=== PATIENT | female | born 1945 | race Caucasian/White ===

== ENCOUNTER → 2024-11-03 08:16 | Outpatient (REF) | payer MEDICARE, BC, SELFPAY | LOC: RAD 08:16 | PROVIDERS: ATTENDING PHYSICIAN Internal Medicine; FAMILY PHYSICIAN Student in an Organized Health Care Education/Training Program | DX: I77.3 Arterial fibromuscular dysplasia (principal) | CPT/HCPCS: 93975 ==

== ENCOUNTER 2025-01-16 14:39 | Inpatient (IN) | payer MEDICARE, BC, SELFPAY ==
[2025-01-16] VITALS (28 sets, daily range): BP systolic 83–143; BP diastolic 48–76; BMI 29.3
[2025-01-16] MEDS: NSS 1000 IV (11:32)
[2025-01-16] MEDS: OFIRMEV 1000 MG IV (11:34)
[2025-01-16 11:41] LABS: AST (SGOT) 117 U/L (14-36); Albumin 3.2 g/dl (3.5-5.0); Alkaline Phosphatase 253 U/L (38-126); Blood Urea Nitrogen 19 mg/dl (7-17); Calcium 8.9 mg/dl (8.4-10.2); Carbon Dioxide 16 mmol/L (22-30); Chloride 99 mmol/L (98-107); Glucose 184 mg/dl (70-99); Potassium 3.9 mmol/L (3.5-5.1); Sodium 132 mmol/L (135-145); Total Bilirubin 1.7 mg/dl (0.2-1.3); Total Protein 6.9 g/dl (6.3-8.2); eGFR 57.31
[2025-01-16 11:42] LABS: Lactic Acid 6.6 mmol/L (0.7-2.0)
[2025-01-16 11:53] LABS: COVID-19 Antigen Negative (Negative)
[2025-01-16 11:54] LABS: Urine Albumin 3+ (Neg - Trace); Urine Bilirubin Negative (Negative); Urine Character Cloudy (Clear); Urine Color Amber; Urine Glucose Negative (Negative); Urine Ketone 3+ (Negative); Urine Leukocyte 3+ (Negative); Urine Nitrite Positive (Negative); Urine Occult Blood 4+ (Negative); Urine Urobilinogen 2+ (Neg - 1+)
[2025-01-16] MEDS: MAXIPIME 2000 MG IV ×2 (11:54→23:11)
[2025-01-16] MEDS: LR 1250 IV (11:54)
[2025-01-16 12:19] LABS: ALT (SGPT) 70 U/L (0-35)
[2025-01-16 12:20] LABS: % Basophils 0.4 % (0-2); % Immature Granulocytes 3.5 % (0-0.5); % Lymphocytes 3.1 % (20.5-51.1); % Monocytes 5.2 % (1.7-9.3); % Neutrophils 87.8 % (42.2-75.2); Absolute Basophils 0.1 10^3/uL (0-0.2); Absolute Immature Granulocytes 1.3 10^3/uL (0-0.05); Absolute Lymphocytes 1.2 10^3/uL (1.2-3.4); Absolute Neutrophils 33.6 10^3/uL (1.4-6.5); Hematocrit 34.3 % (37.0-47.0); Mean Corpuscular Hgb 32.9 pg (27.0-31.0); Mean Platelet Volume 12.1 fL (7.4-10.4); Nucleated Red Blood Cells % 0 %; Platelet Count 203 10^3/uL (130-400); Red Blood Cell Count 3.65 10^6/uL (4.20-5.40); Red Cell Dist. Width 13.4 % (11.5-14.5); White Blood Cell Count 38.2 10^3/uL (4.8-10.8)
[2025-01-16 12:29] LABS: Urine Bacteria Many (Negative); Urine Red Blood Cell 16-20 /HPF (0-2); Urine White Cell >100 /HPF (0-5)
--- NOTE | 2025-01-16 13:09 | ED.GENMED ---
History of Present Illness
General
Chief Complaint: Change in Mental Status
Time Seen by Provider: 01/16/25 11:30
History of Present Illness
History of Present Illness:
79-year-old female presents to the emergency department from [facility] due to mental status change. She does have baseline cognitive impairment. Reportedly was started on Macrobid for a presumed UTI 2 days ago however with
florid mental status change today. She cannot provide any history and is essentially nonverbal
Review of Systems
Review of Systems
Allergies reviewed?: Yes
All Other Systems: ROS reviewed and negative except as documented in HPI and ROS
Phy Exam
Physical Exam
Physical Exam:
GEN: Toxic appearing, somnolent, arouses to voice but essentially nonverbal
HEENT: Oral mucosa dry, no scleral icterus
Cardiac: Tachycardic, regular
Lung: No respiratory distress, no tachypnea, lungs clear to auscultation bilaterally
Abdomen: Grimaces to palpation of the lower abdomen, no rigidity
MSK: No gross deformity or injuries
Skin: Good color, no pallor or jaundice, no rashes
Neuro: Somnolent, arouses to voice, withdraws to all 4 extremities
Psych: Calm, cooperative
Sepsis
Sepsis Screening
Sepsis Assessment: Septic Shock
Sepsis Screening: Lactate >/=4mmol/L
Sepsis Screen
Sepsis Screen: Septic Shock
Date: 01/16/25
Time: 15:37
Course
Orders/Labs/Results
Orders:
Orders
01/16/25 Lunch
NPO
Allow oral meds: No
Allow clear liquids: No
01/16/25 11:14
DIETARY CONSULT Routine
Reason for Consult: confusion
01/16/25 11:15
Electrocardiogram (*1) Urgent
Reason for Study: Tachycardia
01/16/25 11:18
EKG- Treatment ONCE
01/16/25 11:19
Complete Blood Count/With Diff Urgent
Comprehensive Metabolic Panel Urgent
Lactic Acid Urgent
Urinalysis Reflex To Culture Urgent
Date Specimen was Collected: 01/16/25
Time Specimen was Collected: 11:17
Urine Microscopic Reflex Cult Urgent
Blood Culture Urgent
FABIAN Source: Blood/Venous
Specimen Description:
Date Specimen was Collected: 01/16/25
Time Specimen was Collected: 11:17
Urine Culture Urgent
FABIAN Source: U
Specimen Description:
Date Specimen was Collected: 01/16/25
Time Specimen was Collected: 11:17
01/16/25 11:26
COVID-19 Antigen Urgent
Source: Nasal Swab
Blood Culture Urgent
FABIAN Source: Blood/Venous
Specimen Description:
Influenza A+B Rapid Molecular Urgent
FABIAN Source: Nasal Swab
Specimen Description:
01/16/25 11:31
0.9% Sodium Chloride 1000 ml [Nss] 1,000 ml IV BOLUS
01/16/25 11:33
Acetaminophen 1000MG/100Ml [Ofirmev] 1,000 mg in 100 ml .ROUTE .STK-MED
01/16/25 11:34
Acetaminophen 1000MG/100Ml [Ofirmev] 1,000 mg IV NOW STA
01/16/25 11:43
Lactated Ringers [Lr] 1,250 ml IV BOLUS
01/16/25 11:44
CT Abd/pel Without Iv Or Oral Urgent
Comment:
Reason For Exam: urosepsis
Cefepime HCl [Maxipime] 2,000 mg IV NOW STA
01/16/25 14:22
Admit/Transfer Patient As Directed
Co-Sign Provider:
Level of Care: Inpatient admission
Assign to:: IMU- Intermediate Care
Physician / Group: [email or web address]
Diagnosis: severe sepsis, UTI, TME, abn LFTs , hypotension
Reason for Hospitalization: severe sepsis, UTI, TME, abn LFTs , hypotension
Expected length of stay greater than two midnights?: Yes
ELOS- Estimated Length of Stay in days: 3
I certify the patient meets the requirements for IP care: Yes
01/16/25 14:24
Code Status As Directed
Resuscitation Status: Limited DNR
Limited DNR: -No intubation
01/16/25 15:34
Lactated Ringers [Lr] 1,000 ml IV 120 mls/hr
Abnormal Lab Results
01/16/25
11:19
WBC 38.2 H 10^3/uL
(4.8-10.8)
RBC 3.65 L 10^6/uL
(4.20-5.40)
Hct 34.3 L %
(37.0-47.0)
MCH 32.9 H pg
(27.0-31.0)
MPV 12.1 H fL
(7.4-10.4)
Abs Immat Gran (auto) 1.3 H 10^3/uL
(0-0.05)
Absolute Neuts (auto) 33.6 H 10^3/uL
(1.4-6.5)
Absolute Monos (auto) 2.0 H 10^3/uL
(0.1-0.6)
Immature Gran % 3.5 H %
(0-0.5)
Neutrophils % 87.8 H %
(42.2-75.2)
Lymphocytes % 3.1 L %
(20.5-51.1)
Sodium 132 L mmol/L
(135-145)
Carbon Dioxide 16 L mmol/L
(22-30)
BUN 19 H mg/dl
(7-17)
Glucose 184 H mg/dl
(70-99)
Lactic Acid 6.6 H* mmol/L
(0.7-2.0)
Total Bilirubin 1.7 H mg/dl
(0.2-1.3)
AST 117 H U/L
(14-36)
ALT 70 H U/L
(0-35)
Alkaline Phosphatase 253 H U/L
(38-126)
Albumin 3.2 L g/dl
(3.5-5.0)
Urine Ketones 3+ A
(Negative)
Ur Occult Blood Reflex 4+ A
(Negative)
Urine Nitrite (Reflex) Positive A
(Negative)
Urine Urobilinogen 2+ A
(Neg - 1+)
Leukocyte Esterase Rfl 3+ A
(Negative)
Urine RBC 16-20 A /HPF
(0-2)
Urine WBC (Reflex) >100 A /HPF
(0-5)
Urine Bacteria (Reflex) Many A
(Negative)
Urine Albumin (Reflex) 3+ A
(Neg - Trace)
01/16/25 11:19
01/16/25 11:19
Vital Signs
Initial and Last Documented VS:
Initial Vital Signs
Temp Pulse Resp BP
102.6 F H 106 30 133/70
01/16/25 11:11 01/16/25 11:11 01/16/25 11:11 01/16/25 11:11
Last Documented Vital Signs
Temp Pulse Resp BP Pulse Ox
102.6 F H 91 26 96/54 93
01/16/25 11:11 01/16/25 15:00 01/16/25 15:00 01/16/25 15:00 01/16/25 13:30
MDM/Problems Addressed
MDM/Problems Addressed:
Patient severely septic at this time with markedly elevated white count and lactic acid, MAP remained stable after being administered high-volume fluid resuscitation. No indication for vasopressors at this time. Will admit to the hospitalist
service, broad-spectrum IV antibiotics initiated
*Critical Care Note
Total Time (30-74mins, 75-104mins- exclusive of procedures): 40 minutes
comment:
Critical care time: 40 minutes
Critical care time was exclusive of: Separately billable procedures, treating other patients, and teaching time
Critical care was necessary to treat or prevent imminent or life-threatening deterioration of the following conditions: Urosepsis/septic shock
Critical care time spent personally by me on the following activities:
[x] Review of old charts
[x] Obtaining history from patient or surrogate
[x] Ordering and review of the laboratory studies
[x] Ordering and review of radiographic studies
[x] Ordering and performing treatments and interventions
[x] Patient patient's response to treatment
[x] Development of treatment plan with patient or surrogate
ED Attending Note
-
Portions of this chart may have been created with voice recognition software.� Occasional wrong word or��sound alike� substitutions may have occurred due to the inherent limitations of voice recognition software.
Discharge Plan
Departure
Patient Disposition: Admit
Date of Disposition: 01/16/25
Time of Disposition: 13:14
Admit to: IMU
Presentation/result/management discussed w/ accepting MD/DO: Hospitalist
Discharge Problem:
Septic shock, Urinary tract infection
Interventions
Interventions:
*Risk Screen - Suicide Last Done: 01/16/25 11:09
*General Assessment Last Done: 01/16/25 11:09
*Neglect/Abuse Screening Last Done: 01/16/25 11:09
ED- Fall Risk Assessment Last Done: 01/16/25 11:10
*ED COVID-19 Vaccine History Last Done: 01/16/25 11:09
ED- Neurological Assessment Last Done: 01/16/25 11:13
ED Swallowing Screen Last Done: 01/16/25 11:13
--- NOTE | 2025-01-16 14:15 | HPS.HSE ---
Family Physician
-
Family Physician: Vance Davis, DO
Chief Complaint
-
AMS, UTI
History of Present Illness
I could not get any information from the patient TME and cogntive disorder
Information gathered by chart review and speaking with the ER staff.
79F Res of [facility], HX Cognitive impairement ( MCI vs Dementia) seen at ER;
- pw mental status change.
- Dxed presumed UTI 2 days ago and was started on Macrobid f
- florid mental status change today.
- She cannot provide any history and is essentially nonverbal
Medical History
Past Medical History
Past Medical History: Reports HTN, Hypercholesterolemia and IDDM
Past Surgical History: Reports Other
Social History
Unable to obtain full social history at this time due to: Acuity
Family History
Family History: Not pertinent
Allergies / Home Medications
Allergies reflects when Allergies were last updated in [facility].
Home Medications with original date entered in [facility]
Allergy/Medication List:
Allergies
Allergy/AdvReac Type Severity Reaction Status Date / Time
No Known Allergies Allergy Unverified 01/16/25 11:02
Home Medications
Lactobac no.2-Bifidobac no.1-S. thermo 112.5 billion cell capsule (Visbiome) 1 cap PO DAILY 01/16/25
acetaminophen 325 mg tablet 650 mg PO Q6HPRN PRN mild pain/temp>100 01/16/25
acetaminophen 500 mg tablet (Tylenol Extra Strength) 1,000 mg PO DAILY 01/16/25
atorvastatin 10 mg tablet 10 mg PO HS 01/16/25
bisacodyl 10 mg rectal suppository (Dulcolax (bisacodyl)) 10 mg GA DAILYPRN PRN if mom ineffective 01/16/25
budesonide 0.5 mg/2 mL suspension for nebulization 0.5 mg inhalation R BID 01/16/25
clopidogrel 75 mg tablet 75 mg PO DAILY 01/16/25
cranberry extract 200 mg capsule (Ellura) 200 mg PO DAILY 01/16/25
cranberry fruit 450 mg tablet (cranberry) 450 mg PO DAILY 01/16/25
divalproex 125 mg tablet,delayed release (Depakote) 125 mg PO TID 01/16/25
estradiol 0.01% (0.1 mg/gram) vaginal cream (Estrace) 1 g vaginal DAILY 01/16/25
estradiol 0.01% (0.1 mg/gram) vaginal cream (Estrace) 1 g vaginal MOTH 01/16/25
insulin glargine 100 unit/mL (3 mL) subcutaneous pen 35 unit SC HS 01/16/25
insulin lispro 100 unit/mL subcutaneous pen (Humalog KwikPen (U-100) Insulin) 1 sliding scale dose SC ACHS 01/16/25
insulin lispro 100 unit/mL subcutaneous pen (Humalog KwikPen (U-100) Insulin) 15 unit SC NOON 01/16/25
magnesium hydroxide 400 mg/5 mL oral suspension (Milk of Magnesia) 30 ml PO [id number] PRN no bm x3 days 01/16/25
metoprolol succinate 25 mg tablet,extended release 24 hr 12.5 mg PO DAILY 01/16/25
nitrofurantoin monohydrate/macrocrystals 100 mg capsule (Macrobid) 100 mg PO BID 01/16/25
nystatin 100,000 unit/gram topical powder 1 applic topical BID 01/16/25
pantoprazole 40 mg tablet,delayed release 40 mg PO DAILY 01/16/25
paroxetine HCl 20 mg tablet 20 mg PO HS 01/16/25
prednisone 5 mg tablet 5 mg PO DAILY 01/16/25
quetiapine 25 mg tablet (Seroquel) 12.5 mg PO HS 01/16/25
sodium phosphates 19 gram-7 gram/118 mL enema (Fleet Enema) 118 ml GA DAILYPRN PRN if dulcolax ineffective 01/16/25
therapeutic multivitamin 1 tab PO DAILY 01/16/25
tramadol 50 mg tablet 50 mg PO BIDPRN PRN moderate pain 01/16/25
tramadol 50 mg tablet 50 mg PO DAILY 01/16/25
vibegron 75 mg tablet (Gemtesa) 75 mg PO HS 01/16/25
wound dressings (Triad Wound Dressing paste) 1 applic topical DAILY 01/16/25
Review of Systems
-
Unable to obtain full review of systems at this time due to: Acuity
Physical Exam
Vital Signs
Vital Signs
Temp Pulse Resp BP Pulse Ox
102.6 F H 94 32 103/54 95
01/16/25 11:11 01/16/25 13:15 01/16/25 13:15 01/16/25 13:15 01/16/25 13:00
Physical Exam
General: Other (Toxic appearing, somnolent, arouses to voice but essentially nonverbal)
HEENT: No Moist mucous membranes (dry OM )
Respiratory: Clear; No Rales
Cardiac: S1/S2, Regular Rhythm and Tachycardia
GI: Soft and Other (Grimaces to palpation of the lower abdomen, no rigidity)
Skin: No Rash or Jaundice
Neuro: Other ( somnolent, arouses to voice but essentially nonverbal)
Psych: Other ( somnolent, arouses to voice but essentially nonverbal)
Laboratory Results
-
01/16/25 11:19
01/16/25 11:19
Laboratory Results
Lactic Acid 6.6 mmol/L (0.7-2.0) H* 01/16/25 11:19
Total Bilirubin 1.7 mg/dl (0.2-1.3) H 01/16/25 11:19
AST 117 U/L (14-36) H 01/16/25 11:19
ALT 70 U/L (0-35) H 01/16/25 11:19
Alkaline Phosphatase 253 U/L (38-126) H 02/16/25 11:19
Data Reviewed
-
CT Scan: Report Reviewed by me
Medical Tests (Nuc Med, Echo, EKG etc): Report Reviewed by me
Lab Data: Labs Reviewed by me
Impression/Plan
-
Reviewed VS:
Vital Signs
Temp Pulse Resp BP Pulse Ox
102.6 F H 94 32 103/54 95
01/16/25 11:11 01/16/25 13:15 01/16/25 13:15 01/16/25 13:15 01/16/25 13:00
01/16/25
11:11 01/16/25
13:15 01/16/25
13:15
Temp 102.6 F H
Pulse 94
Blood pressure 103/54
Laboratory Tests
01/16/25 01/16/25
11:19 11:26
WBC 38.2 H
Sodium 132 L
Carbon Dioxide 16 L
BUN 19 H
Creatinine 1.0
eGFR 57.31
Lactic Acid 6.6 H*
Total Bilirubin 1.7 H
AST 117 H
ALT 70 H
Alkaline Phosphatase 253 H
Urine Nitrite (Reflex) Positive A
Leukocyte Esterase Rfl 3+ A
Urine RBC 16-20 A
Urine WBC (Reflex) >100 A
Urine Bacteria (Reflex) Many A
SARS-CoV-[address] Abd/pel Without Iv Or Oral
- moderate distention of both ureters along their entire course to the level of the ureterovesical junction with associated mild fullness of the renal pelvis, though without apparent caliectasis.
- No obstructing calculus identified.
- There is, however, prominent bladder wall thickening with associated perivesical soft tissue stranding, highly suspicious for advanced cystitis. Wall thickening may be contributing to functional obstruction related to the interstitial component of
the ureters. - Nonspecific perinephric soft tissue stranding, left greater than right. Possibly chronic.
Such findings may also be associated with pyelonephritis.
- Right renal cysts.
- Splenomegaly.
- Minor diverticulosis.
- No evidence of acute diverticulitis.
ASSESSMENT & PLAN
Severe sepses due to UTI
CT suggestive of highly suspicious for advanced cystitis
Asso. TME
Asso. abn LFTs due to sepsis
Of note: INSIDE PLANT SUPERVISOR chr prednisone noted of uncertain indication
- Agree with septic LR IV fluid bolus and maintainable
- Agree with IV CFP
- f/u UCx and BCx
- Trend LA and VSS
- any clinical deterioration , will start stress dose IV hydrocortisone due to INSIDE PLANT SUPERVISOR chr prednisone
- Hold metoprolol for now di=ue to borderline hypotension
- Trend LFTS
Associated TME due to UTI and severe sepsis
- NPO for aspiration precaution
- IVF
IrDM
- cont. 50 percent of INSIDE PLANT SUPERVISOR Lantus due to NPO
- add ISS low
- Hold Humalog
- NPO for aspiration prcuation
DVT Px: SQH
Code: DNI per ER CUSHION INSTALLER
IMU
[2025-01-16] MEDS: LR 1000 IV ×2 (15:46→23:33)
[2025-01-16 17:32] LABS: Glucose - Point of Care 148 mg/dl (70-99)
--- NOTE | 2025-01-16 17:43 | PTCARENOTE ---
Received patient into room 3354 from the ED. Patient has eyes open but does not attempt to communicate. Pt looks when name is called but does not follow directions. Pt appears drowsy, falls asleep when not engaged. Pt in SR on monitor. Lungs coarse.
She has a few wounds including a stage 3 to sacrum and a large skin tear to her left schreiber, WOC consulted. IVF maintained. 99.7 ax temperature. Assessment, care and VS as charted.
[2025-01-16 18:21] LABS: Lactic Acid 2.9 mmol/L (0.7-2.0)
--- NOTE | 2025-01-16 19:00 | PTCARENOTE ---
Received pt from day shift. Pt drowsy, nonverbal but pt responds to her name. Sinus tach on monitor. 96% on RA, coarse throughout. PW in place draining daniel urine.
[2025-01-16 21:55] LABS: Lactic Acid 4.5 mmol/L (0.7-2.0)
--- NOTE | 2025-01-16 23:00 | PTCARENOTE ---
Pt's lactic 4.5. Pt's rectal temp 105.1. Notified TRUDY Cote. Rx received for cooling blanket and IV Tylenol (see MAR).
[2025-01-16 23:10] LABS: Glucose - Point of Care 178 mg/dl (70-99)
[2025-01-16] MEDS: LANTUS 0.18 UNITS SC (23:10)
[2025-01-16] MEDS: HEPARIN 5000 UNITS SC (23:10)
[2025-01-16] MEDS: STERILE WATER FOR INJECTION 10 ML IV (23:16)
[2025-01-16] MEDS: OFIRMEV 100 IV (23:33)
[2025-01-17] VITALS (12 sets, daily range): BP systolic 66–147; BP diastolic 40–133; BMI 29.8
[2025-01-17 02:27] LABS: Lactic Acid 5.1 mmol/L (0.7-2.0)
--- NOTE | 2025-01-17 02:45 | PTCARENOTE ---
Lactic increased to 5.1 Kera TRAINING PROJECT MANAGER notified.
[2025-01-17 03:34] LABS: Glucose - Point of Care 183 mg/dl (70-99)
[2025-01-17 05:59] LABS: Lactic Acid 7.2 mmol/L (0.7-2.0)
[2025-01-17 06:19] LABS: Blood Urea Nitrogen 21 mg/dl (7-17); Calcium 9.1 mg/dl (8.4-10.2); Chloride 106 mmol/L (98-107); Estimated Creatinine Clearance 64 ml/min; Glucose 132 mg/dl (70-99); Potassium 4.2 mmol/L (3.5-5.1); Sodium 135 mmol/L (135-145); eGFR > 60.00
[2025-01-17 06:25] LABS: Hematocrit 32.5 % (37.0-47.0); Hemoglobin 11.5 g/dL (12.0-16.0); Mean Corp Hgb Conc. 35.4 g/dL (33.0-37.0); Mean Corpuscular Hgb 33.4 pg (27.0-31.0); Mean Corpuscular Volume 94.5 fL (81.0-99.0); Mean Platelet Volume 12.4 fL (7.4-10.4); Platelet Count 142 10^3/uL (130-400); Red Blood Cell Count 3.44 10^6/uL (4.20-5.40); Red Cell Dist. Width 13.4 % (11.5-14.5); White Blood Cell Count 25.8 10^3/uL (4.8-10.8)
[2025-01-17 06:31] LABS: Carbon Dioxide 8 mmol/L (22-30)
--- NOTE | 2025-01-17 06:45 | PTCARENOTE ---
Lactic increased to 7.2. CO2 is 8. TRUDY Cote notified. Rx received for IVF w/ sodium bicarb.
--- NOTE | 2025-01-17 06:48 | W.PN.UPDATE ---
Update Note
Progress Note Update
ID consult placed due to lactic acidosis likely urine source. T 105F anion gap 20, bp is stable. Meropenem added, cefepime stopped (2 doses total). IVF changed to 1/2 ns with HCO3 . [facility] may be resistant organism involved UA
C+S pending.
[2025-01-17 07:12] LABS: Glucose - Point of Care 153 mg/dl (70-99)
[2025-01-17] MEDS: SODIUM BICARBONATE 1075 MEQ IV (07:20)
[2025-01-17] MEDS: MERREM 1000 MG IV (07:32)
[2025-01-17] MEDS: STERILE WATER FOR INJECTION 20 ML IV (07:32)
[2025-01-17] MEDS: HEPARIN 5000 UNITS SC (07:32)
[2025-01-17] MEDS: NOVOLOG FLEXPEN-LOW RESISTANCE 1 UNITS SC ×2 (07:40→12:19)
--- NOTE | 2025-01-17 07:42 | PTCARENOTE ---
DR Schultz tt pt lactic 7.2, co2 8 and temp 103.5 on cooling blanket. Pt is lethargic, moaning occ. in B/B urine is ytea olor,tachycardic at 124. lungs are coarse
[2025-01-17 08:54] LABS: % Basophils 0.2 % (0-2); % Immature Granulocytes 1.1 % (0-0.5); % Lymphocytes 2.9 % (20.5-51.1); % Monocytes 5.9 % (1.7-9.3); % Neutrophils 89.9 % (42.2-75.2); Absolute Basophils 0.1 10^3/uL (0-0.2); Absolute Immature Granulocytes 0.3 10^3/uL (0-0.05); Absolute Lymphocytes 0.8 10^3/uL (1.2-3.4); Absolute Monocytes 1.5 10^3/uL (0.1-0.6); Absolute Neutrophils 23.2 10^3/uL (1.4-6.5); Nucleated Red Blood Cells % 0.2 %
[2025-01-17 09:05] LABS: Glycohemoglobin (HgbA1c) 6.5 % (4.0-5.6)
--- NOTE | 2025-01-17 09:29 | PHA.VAN.IN ---
Assessment
- Assessment
Renal Function: Appears similar to baseline
Concomitant Antimicrobials: meropenem
AUC Dosing Plan
- Dosing Variables
Dosing Weight (kg): 76
Dosing CrCl (ml/min): 64
Vd coefficient (L/kg): 0.7
- Empiric Dosing
Initial / Loading Dose: 2000mg - administration pending
Maintenance Regimen: Vanc 1500mg Q24H starting 01/18 600
Estimated AUC (mcg*h/mL): 511
Estimated Peak (mcg*h/mL): 37.7
Estimated Trough (mcg/ml): 10.3
Estimated Half Life (H): 12
patient with borderline half-life between Q12 vs Q24H interval - follow renal function trend as may require dose adjustment
- Monitoring
No levels ordered at this time: consider levels in next few days
Pharmacokinetics Vancomycin I
- -
Patient Age: 79
Patient Sex: Female
Vancomycin Day #: 1
Indication: Bacteremia
Requesting Provider: Dr. Schultz
Pertinent Antimicrobial Allergies:
NKDA
Height / Weight:
Height 5 ft 3 in
Actual Weight 76.4 kg
Pertinent Past Medical History: BMI ~30, DM
- Vital Signs / Lab Results
Temp Pulse Resp BP Pulse Ox
103.8 F H 121 37 124/64 96
01/17/25 07:20 01/17/25 06:00 01/17/25 06:00 01/17/25 06:00 01/17/25 06:00
Lab Results - Hematology
01/16/25 01/17/25
11:19 05:28
WBC 38.2 H 25.8 H
Lab Results - Chemistry
01/16/25 01/17/25
11:19 05:28
BUN 19 H 21 H
Creatinine 1.0 0.7
Estimated Creat Clear 64
Albumin 3.2 L Cancelled
01/16/25 01/16/25 01/16/25
11:19 17:56 21:35
Lactic Acid 6.6 H* 2.9 H 4.5 H*
01/17/25 01/17/25
02:02 05:28
Lactic Acid 5.1 H* 7.2 H*
Lab Results - Urine
01/16/25
11:19
Urine Nitrite (Reflex) Positive A
Leukocyte Esterase Rfl 3+ A
Urine WBC (Reflex) >100 A
Ur Squamous Epith Cells 3-5
Urine Bacteria (Reflex) Many A
Microbiology Results
01/16/25 11:19 Blood Culture - Preliminary
Blood/Venous Positive culture in progress
Gram Stain - Preliminary
01/16/25 11:26 Blood Culture - Preliminary
Blood/Venous Positive culture in progress
Gram Stain - Preliminary
01/16/25 11:26 Influenza Types A & B (DOUG) - Final
Nasal Swab Negative for Influenza A & B, NAAT
Negative results must be combined with clinical observations
and patient history.
Nucleic Acid Amplification test (NAAT)performed on the
[employer] platform.
[2025-01-17 09:39] LABS: Urine Albumin 3+ (Neg - Trace); Urine Bilirubin Negative (Negative); Urine Character Slightly Cloudy (Clear); Urine Color Yellow; Urine Glucose 1+ (Negative); Urine Ketone 2+ (Negative); Urine Leukocyte 3+ (Negative); Urine Nitrite Negative (Negative); Urine Occult Blood 4+ (Negative); Urine Urobilinogen Negative (Neg - 1+); Urine pH 6.5 (5.0-9.0)
[2025-01-17] MEDS: SODIUM BICARBONATE 1150 MEQ IV (09:45)
[2025-01-17] MEDS: VANCOCIN 540 MG IV (09:47)
--- NOTE | 2025-01-17 09:53 | CON.ID ---
Consultation
-
Date/Time Consultation Requested: January 17, 2025618
Date/Time Consultation Performed: January 17, 2025 0928
Requesting Provider: Dr. Steffen Schultz
Performing Provider: Dr. Izabella Epps
Reason for Consultation: Fever
Chief Complaint / Past History
Chief Complaint
Change in mental status
History of Present Illness
History obtained from review of medical records since patient unable to provide any history. She is a 79-year-old female from residential facility with history of cognitive impairment, diabetes mellitus, urinary incontinence, who presented to
the [facility] on 01/16 due to acute change and mental status. By report she was started on nitrofurantoin for UTI 2 days prior to admission. In the ER temperature 1002.6 with temperature maximum at 105. White count of 38.2. Lactic acid peaked 7.2.
CAT scan of the abdomen pelvis shows dilated bilateral ureters without stones, bladder wall thickening. Patient received cefepime in the ER. Today blood cultures are positive for GPC's. Antibiotics changed to vancomycin and meropenem.
Past History
Additional Past Medical History:
Cognitive impairment
DM
HTN
HLD
Depression/Anxiety
Urinary incontinence
Allergy History:
No Known Allergies Allergy (Unverified 01/16/25 11:02)
Medications Reviewed: Yes
Current Antibiotics:
Vancomycin d1
Meropenem d1
Social History
Tobacco: Non-Smoker
Alcohol: None
Drug: None
Living: Custodial ([place])
Family History
Family History: Not Pertinent
Review of Systems
Review of Systems
Unable to obtain due to decreased mental status.
Vital Signs
Temp Pulse Resp BP Pulse Ox
103.8 F H 121 37 124/64 96
01/17/25 07:20 01/17/25 06:00 01/17/25 06:00 01/17/25 06:00 01/17/25 06:00
Selected Entries
01/16/25
23:25
Temp 105 F H
Physical Exam
Physical Exam
Constitutional: Acutely Ill
Head: Other (No frontal or maxillary sinus tenderness)
Eyes: No Conjunctival Hemorrhage and Sclera Anicteric
Cardiovascular: S1/S2 and Other (Tachycardic)
Pulmonary: Clear
Gastrointestinal: Soft, Non Tender, Non Distended and Normal Bowel Sounds
Genito-Urinary: Negative CVA Tenderness
Extremities: Negative Edema
Skin: Other
Wound: Other (BLE with excoriations)
Neurological: Other (Wakes up to voice; lethargic); Negative Meningeal Signs
Lab / Diagnostic Study Results
Abs Immat Gran (auto) 0.3 10^3/uL (0-0.05) H 01/17/25 05:28
Absolute Neuts (auto) 23.2 10^3/uL (1.4-6.5) H 01/17/25 05:28
Absolute Lymphs (auto) 0.8 10^3/uL (1.2-3.4) L 01/17/25 05:28
Absolute Monos (auto) 1.5 10^3/uL (0.1-0.6) H 01/17/25 05:28
Absolute Basos (auto) 0.1 10^3/uL (0-0.2) 01/17/25 05:28
Immature Gran % 1.1 % (0-0.5) H 01/17/25 05:28
Neutrophils % 89.9 % (42.2-75.2) H 01/17/25 05:28
Lymphocytes % 2.9 % (20.5-51.1) L 01/17/25 05:28
Monocytes % 5.9 % (1.7-9.3) 01/17/25 05:28
Eosinophils % 0.0 % (0-6) 01/17/25 05:28
Basophils % 0.2 % (0-2) 01/17/25 05:28
Lactic Acid 7.2 mmol/L (0.7-2.0) H* 01/17/25 05:28
Ur Squamous Epith Cells 3-5 /LPF (Few) 01/16/25 11:19
Microbiology Results
Micro:
01/17/25 09:07 Urine Culture - Pending
Urine
01/16/25 11:19 Blood Culture - Preliminary
Blood/Venous Positive culture in progress
Gram Stain - Preliminary
01/16/25 11:26 Blood Culture - Preliminary
Blood/Venous Positive culture in progress
Gram Stain - Preliminary
01/16/25 20:04 MRSA Screen - Pending
Nose
01/16/25 11:19 Urine Culture - Pending
Urine
01/16/25 11:26 Influenza Types A & B (DOUG) - Final
Nasal Swab Negative for Influenza A & B, NAAT
Negative results must be combined with clinical observations
and patient history.
Nucleic Acid Amplification test (NAAT)performed on the
[employer] platform.
01/16/25 CT a/p: There is moderate distention of both ureters along their entire course to the level of the ureterovesical junction with associated mild fullness of the renal pelvis, though without apparent caliectasis. No obstructing calculus
identified. There is, however, prominent bladder wall thickening with associated perivesical soft tissue stranding, highly suspicious for advanced cystitis. Wall thickening may be contributing to functional obstruction related to the interstitial
component of the ureters. Nonspecific perinephric soft tissue stranding, left greater than right. Possibly chronic. Such findings may also be associated with pyelonephritis.Splenomegaly.
Assessment / Plan
# GPC bacteremia x 2
# Suspect complicated UTI source
# Severe sepsis: high fever, leukocytosis, elev lactic acidosis
-Repeat bcx's in am
-Replace meropenem with Zosyn for suspected Enterococcus
- Continue Vancomycin pending culture data
- Trend temps/wbc/lactic acid
[2025-01-17 09:58] LABS: Urine Red Blood Cell 16-20 /HPF (0-2); Urine White Cell >100 /HPF (0-5)
[2025-01-17 09:59] LABS: Urine Bacteria Few (Negative)
--- NOTE | 2025-01-17 10:22 | W.PN.HOSP.TC ---
Today's Communication/Plan
-
IV antibiotics
Alkalinized IV fluids
Stress dose of steroids.
Monsalve catheter.
Follow final blood cultures
ID consultation
Total Critical Care Time_45____ minutes. I was immediately available to the patient and staff. I personally examined, reviewed labs, diagnostic images/reports, interpretations, treatment plans, discussed patient care with other providers and
family or caregivers (if patient is unable to make decisions), entered orders as appropriate and documented the medical record.
\\Patient was daughter updated over the phone
Assessment / Plan
Assessment / Plan
Impression:
Severe sepsis.
Suspected urinary tract infection as a source.
Gram-positive bacteremia
Lactic acidosis
Hyponatremia
Elevated LFT, mixed pattern
Toxic metabolic encephalopathy
Conditions prior to admission.
ASCVD.
History of TIA.
Insulin requiring diabetes.
Adrenal insufficiency on prednisone maintenance
Dementia with behavioral features.
Recurrent UTIs requiring hospitalization
alf resident
Plan:
Severe sepsis.
Suspect urinary source (abnormal urinalysis, CT without contrast with bilateral hydronephrosis and distended ureters)
Metabolic/lactic acidosis
Gram-positive bacteremia 2/2
Chest x-ray with no acute disease
Continue broad-spectrum antibiotics, currently on cefepime now with addition of vancomycin pending final cultures
ID consultation
Continue IV fluid resuscitation, being transition to IV bicarbonate.
Stress dose of corticosteroids pending cortisol level.
With abnormal LFTs, suspect secondary to acute sepsis, although will check abdominal ultrasound.
Chest x-ray
Follow CBC/CMP/lactic acid level
Given abnormal urinary tract with bilateral hydro, will place Monsalve catheter and monitor urine output closely.
Depends on final cultures, will consider echocardiogram
Toxic metabolic encephalopathy
Limited neurologic exam.
Consider CT scan of the head
Underlying dementia with behavioral/psychotic features.
Preadmission regimen including Depakote, paroxetine, Seroquel, currently on hold.
ASCVD.
According to patient's daughter with no history of heart failure.
Preadmission regimen: Plavix, statin, metoprolol
Type 2 diabetes/IDDM
Currently n.p.o. Hold standing dose of insulin
Update hemoglobin A1c
Basal bolus protocol with serial Accu-Cheks
Chronic prednisone, possibly secondary to adrenal insufficiency.
Preadmission maintenance prednisone 5 mg currently on hold
Start IV hydrocortisone 25 mg every 8 hours
CODE STATUS DNR/limited
Anticipated Discharge: > 48 hours
Subjective/Interval History
-
Date of Service: January 17, 2025
Objective Data
-
Labs:
Laboratory Results
01/17/25 01/17/25
05:28 08:55
WBC 25.8 H Pending
Hgb 11.5 L Pending
Hct 32.5 L Pending
Plt Count 142 D Pending
Sodium 135 Pending
Potassium 4.2 Pending
Chloride 106 Pending
Carbon Dioxide 8 L* Pending
BUN 21 H Pending
Creatinine 0.7 Pending
Glucose 132 H Pending
Calcium 9.1 Pending
Total Bilirubin Cancelled Pending
AST Cancelled Pending
ALT Cancelled Pending
Alkaline Phosphatase Cancelled Pending
Vital Signs:
Vital Signs
Temp Pulse Resp BP Pulse Ox
101.4 F H 121 37 124/64 96
01/17/25 10:00 01/17/25 06:00 01/17/25 06:00 01/17/25 06:00 01/17/25 06:00
Physical Exam
-
General: Well Developed and No Apparent Distress
HEENT: Normocephalic, Atraumatic and Moist Mucous Membranes
Respiratory: Clear to Auscultation
Cardiac: Regular Rhythm and S1/S2; Negative Murmur, Rub or Gallop
GI: Soft, Nontender, Nondistended and Normal Bowel Sounds; Negative Organomegaly
Rectal: Deferred by Provider
Musculoskeletal: No Clubbing, No Cyanosis and No Edema
Skin: Negative Rash
Neuro: Other (Lethargic, not following commands. )
--- NOTE | 2025-01-17 10:52 | WOUNDNOTE ---
SAMUEL (L LATERAL, R MEDIAL)
--- NOTE | 2025-01-17 10:53 | WOUNDNOTE ---
L ABDOMEN (LOWER LATERAL)
[2025-01-17] MEDS: OFIRMEV 100 IV (10:59)
--- NOTE | 2025-01-17 11:01 | WOUNDNOTE ---
[facility] RN note: Patient admitted with severe sepsis, UTI, abnormal LFT, HOTN. Patient admitted from [facility].
See H&P for complete history.
PMH: UTI, HTN, IDDM, cognitive impairment.
Wound Location and type/assessment: Patient admitted with: unstageable sacral pressure injury with brown and black eschar, some purple proximally and local erythema mostly proximally. Multiple leg/ankle small scabbed abrasions. R lateral ankle
persistent blanchable red. MASD abdominal/groin folds.
Appetite: NPO currently.
Pressure redistribution devices in place: Centrella Max air bed. Patient is not moving self in bed.
Plan: Sacral dressing changed. Patient turned to L semi side lying position with help from CRISTY Zhao and PCT/CRISTY Andujar. Heels off bed with pillow and air chair cushion. Silicone border foam applied to R lateral ankle for protection.
Updated Dr. Schultz and Dr. Epps re: Unstageable sacral pressure injury with brown/black eschar; confirm orders with hospitalist and discussed with CRISTY Zhao.
Care plan to be updated and will follow as needed.
Note to case management of equipment requested for discharge: Air mattress if not already in place at SNF.
Recommend follow up at wound care center upon discharge.
[2025-01-17] MEDS: ZOSYN 50 IV (11:57)
[2025-01-17 12:32] LABS: Glucose - Point of Care 157 mg/dl (70-99)
--- NOTE | 2025-01-17 12:54 | PTCARENOTE ---
Daughter at bedside given update
--- NOTE | 2025-01-17 14:16 | PTCARENOTE ---
Pt daughter at bedside , bp 81/43 spoke with daughter re blood pressure support , daughter spoke of making her comfortable and following her wishes. Dr Montemayor notifed now speaking with daughter. Holding off on blood work for now
--- NOTE | 2025-01-17 14:26 | WOUNDNOTE ---
WOC RN note: t/c [facility] and spoke with nurse Washington who stated they will have an air mattress for patient. Patient has an unstageable sacral pressure injury.
--- NOTE | 2025-01-17 14:41 | W.PN.UPDATE ---
Update Note
Progress Note Update
Clinical status rapidly deteriorating with minimal patient in septic shock despite of aggressive treatment including broad-spectrum antibiotics, IV fluids, stress dose of corticosteroids.
Met with patient's daughter at the bedside
According to patient wishes and advance directive not to pursue any aggressive measures in the settings of recurrent and terminal illness, also in review of patient recent cognitive decline while in the nursing facility, plan is to transition to
comfort care.
[2025-01-17] MEDS: MORPHINE SULFATE 2 MG IV ×3 (14:58→21:03)
--- NOTE | 2025-01-17 15:05 | PTCARENOTE ---
Pt now on comfort care. IVs stopped Morphine 2 mg given as ordered. Daughter at bedside
[2025-01-17] MEDS: NSS (PRESERVATIVE FREE) 1 ML IV (15:33)
[2025-01-17] MEDS: ATIVAN 2 MG IV (15:33)
--- NOTE | 2025-01-17 15:52 | CM ---
Patient from [facility] with Dx sepsis. Seen by wound care nurse. Febrile. Comfort care. Receiving IV MS.
Spoke with Adm Erikas [facility];
the patient resided there in LTC on an [place] bed hold.
She was alert and confused at baseline.
The patient requires assist of 1, was w/c bound.
The patient was not receiving PT/OT.
Provided update to Erika that patient was transitioned to comfort care and daughter was aware.
CM attempted to reach daughter Maribel to offer emotional support - left message.
Plan comfort care.
--- NOTE | 2025-01-17 16:48 | PTCARENOTE ---
Report to RN 332 . Daughter here aware of tx
--- NOTE | 2025-01-17 18:03 | PTCARENOTE ---
pt transferred from IMU daughter and brother at bedside. pt unresponsive to verbal and tactile stimuli. Pt on comfort measures. pain appears to be managed at this time. Pt on RA, lung sounds are diminished, b/l, poor effort. incont b&B dressing
noted to sacrum per report unstageable pressure wound. foam dressings also noted to right ankle. preventative foams b/l heels.
[2025-01-17] MEDS: DESENEX/MITRAZOL/ZEASORB TOPICAL (21:26)
[2025-01-18] MEDS: MORPHINE SULFATE 2 MG IV ×4 (03:27→19:33)
[2025-01-18 07:05] VITALS: BP 111/60
[2025-01-18] MEDS: DAKIN'S SOLUTION 0.125% 1/4 STRENGTH 473 ML TOPICAL (08:50)
[2025-01-18] MEDS: DESENEX/MITRAZOL/ZEASORB 1 APPLIC TOPICAL ×2 (08:51→19:42)
[2025-01-18] MEDS: SANTYL OINTMENT 1 APPLIC TOPICAL (08:51)
--- NOTE | 2025-01-18 09:59 | PN.CDI ---
CDI
- -
CDI:
Physician Documentation Request
Admit Date: 01/16/25 14:39
Dear Doctor Antoine,
01/17 WOCN note states 'unstageable sacral pressure injury with brown and black eschar, some purple proximally and local erythema most proximally. Multiple leg/ankle small scabbed abrasions. R lateral ankle persistent blanchable red. MASD
adominal/groin folds. '
Physician documentation of the type and location of wounds is required for compliant documentation. Based on the above clinical findings and your assessment, please provide the following in your progress note:
1. Location of the ulcer/wound, including laterality.
2. Type (etiology) of ulcer/wound:
- Diabetic ulcer
- Arterial (ischemic) ulcer
- Traumatic wound
- Venous stasis ulcer
- Pressure (decubitus) ulcer
- Other
Use of terms such as suspected, likely, concern for, or probable (associated with a specific diagnosis that is being evaluated, monitored, or treated as if it exists) are acceptable and can be coded in the inpatient setting, when documented at the
time of discharge.
Thank you,
Maribel Rivera RN, BSN
CDI Specialist
tiger text
Please use your independent medical judgment in providing your response.
*Source: National Pressure Ulcer Advisory Panel (NPUAP)
[2025-01-18] MEDS: ATIVAN 2 MG IV ×2 (11:10→21:14)
[2025-01-18] MEDS: TYLENOL/FEVERALL 650 MG RECTAL (12:16)
--- NOTE | 2025-01-18 14:26 | CM ---
CM reviewed pt with Dr Schultz- plan to maintain comfort care
Discharge Disposition- comfort care
--- NOTE | 2025-01-18 15:54 | W.PN.HOSP.TC ---
Today's Communication/Plan
-
Comfort care
Assessment / Plan
Assessment / Plan
Impression:
Severe sepsis.
Suspected urinary tract infection as a source.
Gram-positive bacteremia
Lactic acidosis
Hyponatremia
Elevated LFT, mixed pattern
Toxic metabolic encephalopathy
Conditions prior to admission.
ASCVD.
History of TIA.
Insulin requiring diabetes.
Adrenal insufficiency on prednisone maintenance
Dementia with behavioral features.
Recurrent UTIs requiring hospitalization
group home resident
Plan:
Transitioned to comfort care on 01/17
Continue current medication regimen with titration to comfort
Discussed with patient's daughter at the bedside.
Anticipated Discharge: 24 - 48 hours
Subjective/Interval History
-
Date of Service: January 18, 2025
Objective Data
-
Vital Signs:
Vital Signs
Temp Pulse Resp BP Pulse Ox
100.4 F H 105 20 111/60 94
01/18/25 12:00 01/18/25 07:05 01/18/25 07:05 01/18/25 07:05 01/18/25 07:05
I&O
01/17/25 01/18/25 01/19/25
06:59 06:59 06:59
Intake Total 1190 / 1190
Output Total 50 / 50
Balance 1140 / 1140
Physical Exam
-
General: Well Developed and No Apparent Distress
HEENT: Normocephalic, Atraumatic and Moist Mucous Membranes
Respiratory: Clear to Auscultation
Cardiac: Regular Rhythm and S1/S2; Negative Murmur, Rub or Gallop
GI: Soft, Nontender, Nondistended and Normal Bowel Sounds; Negative Organomegaly
Rectal: Deferred by Provider
Musculoskeletal: No Clubbing, No Cyanosis and No Edema
Skin: Negative Rash
Neuro: Other (Lethargic, not following commands. )
--- NOTE | 2025-01-18 18:39 | PTCARENOTE ---
Pt continues on comfort measures. Turned q2hrs. PRN medication administered during shift with + effects. Daughter at bedside. Daughter asked about 'about how long pt had left'. Nursing staff stated that it is unknown exactly when pt would pass so a
time frame could not be given. Daughter stated several times ' I won't hold you accountable for a time frame'. Nursing staff stated that if the daughter felt unsure about going home vs staying then she should stay, but a time frame could not be
given. Safety and comfort measures maintained. Pt checked frequently throughout shift.
[2025-01-18 23:51] VITALS: BP 143/70
[2025-01-19] MEDS: MORPHINE SULFATE 2 MG IV ×4 (00:14→12:03)
[2025-01-19] MEDS: ATIVAN 2 MG IV ×4 (00:39→12:04)
[2025-01-19] MEDS: NSS (PRESERVATIVE FREE) 1 ML IV ×2 (00:42→06:01)
--- NOTE | 2025-01-19 03:16 | DOWNTIME ---
There was a [employer] Downtime on 01/19/2025 from 0100 to 01/19/2024 at 0235 . Downtime documentation of patient's care, including medication administrations, has been reconciled in the electronic record per guidelines. Refer to the
patient's paper chart under the miscellaneous tab to see printed paper medication records and downtime forms.
[2025-01-19 07:15] VITALS: BP 132/72
[2025-01-19] MEDS: DESENEX/MITRAZOL/ZEASORB 1 APPLIC TOPICAL ×2 (07:23→21:08)
[2025-01-19] MEDS: SANTYL OINTMENT 1 APPLIC TOPICAL (07:23)
[2025-01-19] MEDS: DAKIN'S SOLUTION 0.125% 1/4 STRENGTH 473 ML TOPICAL (07:24)
[2025-01-19] MEDS: TYLENOL/FEVERALL 650 MG RECTAL (10:48)
--- NOTE | 2025-01-19 11:20 | CM ---
Patient continues on Comfort needs. CM will continue to follow for discharge planning needs.
Plan; comfort care
[2025-01-19] MEDS: MORPHINE 100 IV (13:03)
--- NOTE | 2025-01-19 16:06 | W.PN.HOSP.TC ---
Today's Communication/Plan
-
Comfort care
Assessment / Plan
Assessment / Plan
Impression:
Severe sepsis.
Suspected urinary tract infection as a source.
Gram-positive bacteremia
Lactic acidosis
Hyponatremia
Elevated LFT, mixed pattern
Toxic metabolic encephalopathy
Conditions prior to admission.
ASCVD.
History of TIA.
Insulin requiring diabetes.
Adrenal insufficiency on prednisone maintenance
Dementia with behavioral features.
Recurrent UTIs requiring hospitalization
intermediate resident
Plan:
Transitioned to comfort care on 01/17
Initiate morphine drip with titration
Antibiotics
Secretion control
Discussed with patient's daughter at the bedside.
Discussed with nursing
Anticipated Discharge: 24 - 48 hours
Subjective/Interval History
-
Date of Service: January 19, 2025
Objective Data
-
Vital Signs:
Vital Signs
Temp Pulse Resp BP Pulse Ox
100.7 F H 104 19 132/72 93
01/19/25 14:48 01/19/25 07:15 01/19/25 07:15 01/19/25 07:15 01/19/25 07:15
I&O
01/18/25 01/19/25 01/20/25
06:59 06:59 06:59
Intake Total 1190 / 1190
Output Total 50 / 50 900 / 900
Balance 1140 / 1140 -900 / -900
Physical Exam
-
General: Well Developed and No Apparent Distress
HEENT: Normocephalic, Atraumatic and Moist Mucous Membranes
Respiratory: Clear to Auscultation
Cardiac: Regular Rhythm and S1/S2; Negative Murmur, Rub or Gallop
GI: Soft, Nontender, Nondistended and Normal Bowel Sounds; Negative Organomegaly
Rectal: Deferred by Provider
Musculoskeletal: No Clubbing, No Cyanosis and No Edema
Skin: Negative Rash
Neuro: Other (Lethargic, not following commands. )
[2025-01-19 23:03] VITALS: BP 120/72
[2025-01-20 07:30] VITALS: BP 114/65
[2025-01-20] MEDS: DAKIN'S SOLUTION 0.125% 1/4 STRENGTH 473 ML TOPICAL (08:13)
[2025-01-20] MEDS: DESENEX/MITRAZOL/ZEASORB 1 APPLIC TOPICAL ×2 (08:14→20:16)
[2025-01-20] MEDS: TYLENOL/FEVERALL 650 MG RECTAL ×3 (08:14→23:23)
[2025-01-20] MEDS: MORPHINE SULFATE 2 MG IV ×3 (08:15→13:50)
[2025-01-20] MEDS: SANTYL OINTMENT 1 APPLIC TOPICAL (08:16)
[2025-01-20] MEDS: ROBINUL 0.2 MG IV (14:16)
--- NOTE | 2025-01-20 15:15 | PTCARENOTE ---
Received patient from nightshift RN. Patient was on step 2 of morphine drip. This AM, noticed some agonal breathing and temp of 102.1. Patient received PRN Tylenol and PRN morphine x2 doses. MD notified. With PRN doses of morphine her agonal
breathing improved and pt was no longer dyspneic. MD with new orders to increase pt to step 3 on the morphine drip. With 1200 end of life assessment, pt presented with fever again and agonal breathing. PRN morphine and Tylenol given at this time.
Daughter at bedside this shift. Plan of care ongoing.
--- NOTE | 2025-01-20 15:39 | W.PN.HOSP.TC ---
Addendum entered and electronically signed by Steffen Schultz MD 01/26/25 15:54:
unstageable sacral pressure injury with brown and black eschar
Original Note:
Today's Communication/Plan
-
Continue comfort care
Assessment / Plan
Assessment / Plan
Impression:
Severe sepsis.
Suspected urinary tract infection as a source.
Gram-positive bacteremia
Lactic acidosis
Hyponatremia
Elevated LFT, mixed pattern
Toxic metabolic encephalopathy
Conditions prior to admission.
ASCVD.
History of TIA.
Insulin requiring diabetes.
Adrenal insufficiency on prednisone maintenance
Dementia with behavioral features.
Recurrent UTIs requiring hospitalization
[facility] resident
Plan:
Transitioned to comfort care on 01/17
Initiate morphine drip with titration
Antibiotics
Secretion control
Discussed with patient's daughter at the bedside.
Discussed with nursing
Anticipated Discharge: 24 - 48 hours
Subjective/Interval History
-
Date of Service: January 20, 2025
Objective Data
-
Vital Signs:
Vital Signs
Temp Pulse Resp BP Pulse Ox
101.2 F H 141 12 114/65 90
01/20/25 15:14 01/20/25 07:30 01/20/25 07:30 01/20/25 07:30 01/20/25 11:17
I&O
01/19/25 01/20/25 01/21/25
06:59 06:59 06:59
Output Total 900 / 900 650 / 650
Balance -900 / -900 -650 / -650
Physical Exam
-
General: Well Developed and No Apparent Distress
HEENT: Normocephalic, Atraumatic and Moist Mucous Membranes
Respiratory: Clear to Auscultation
Cardiac: Regular Rhythm and S1/S2; Negative Murmur, Rub or Gallop
GI: Soft, Nontender, Nondistended and Normal Bowel Sounds; Negative Organomegaly
Rectal: Deferred by Provider
Musculoskeletal: No Clubbing, No Cyanosis and No Edema
Skin: Negative Rash
Neuro: Other (Lethargic, not following commands. )
[2025-01-20 23:02] VITALS: BP 110/65
[2025-01-20] MEDS: MORPHINE 100 IV (23:40)
[2025-01-21] MEDS: TYLENOL/FEVERALL 650 MG RECTAL ×2 (04:26→23:45)
[2025-01-21 07:45] VITALS: BP 125/63
[2025-01-21] MEDS: SANTYL OINTMENT 1 APPLIC TOPICAL (08:08)
[2025-01-21] MEDS: DAKIN'S SOLUTION 0.125% 1/4 STRENGTH 473 ML TOPICAL (08:08)
[2025-01-21] MEDS: DESENEX/MITRAZOL/ZEASORB 1 APPLIC TOPICAL ×2 (08:09→20:15)
--- NOTE | 2025-01-21 11:31 | CM ---
Patient seen at bedside, CM spoke with nursing, patient continues on comfort care. Patient now on step 3 of morphine drip. CM will continue to follow for discharge planning needs.
Plan; comfort care
--- NOTE | 2025-01-21 13:54 | WOUNDNOTE ---
WOC RN Note: Patient on comfort care. Confirmed with Dr. Schultz to discontinue Santyl part of sacral wound care. Discussed with CRISTY Henning. Care plan and discharge instructions updated.
--- NOTE | 2025-01-21 13:55 | WOUNDNOTE ---
[facility] RN Note: Patient on comfort care. Confirmed with Dr. Schultz to discontinue Santyl part of sacral wound care. Discussed with RN Milady who will apply an air overlay mattress if patient is not on an air mattress already for comfort. Care plan and
discharge instructions updated. Will sign off.
--- NOTE | 2025-01-21 14:05 | W.PN.HOSP.TC ---
Today's Communication/Plan
-
Continue comfort care
Assessment / Plan
Assessment / Plan
Impression:
Severe sepsis.
Suspected urinary tract infection as a source.
Gram-positive bacteremia
Lactic acidosis
Hyponatremia
Elevated LFT, mixed pattern
Toxic metabolic encephalopathy
Conditions prior to admission.
ASCVD.
History of TIA.
Insulin requiring diabetes.
Adrenal insufficiency on prednisone maintenance
Dementia with behavioral features.
Recurrent UTIs requiring hospitalization
[facility] resident
Plan:
Transitioned to comfort care on 01/17
Initiate morphine drip with titration
Antibiotics
Secretion control
Discussed with patient's daughter at the bedside.
Discussed with nursing
Anticipated Discharge: 24 - 48 hours
Subjective/Interval History
-
Date of Service: January 21, 2025
Objective Data
-
Vital Signs:
Vital Signs
Temp Pulse Resp BP Pulse Ox
103.1 F H 144 8 125/63 89
01/21/25 07:45 01/21/25 07:45 01/21/25 07:45 01/21/25 07:45 01/21/25 07:45
I&O
01/20/25 01/21/25 01/22/25
06:59 06:59 06:59
Output Total 650 / 650 600 / 600
Balance -650 / -650 -600 / -600
Physical Exam
-
General: Negative Respiratory Distress
Respiratory: Other (Irregular infrequent respirations)
Cardiac: Regular Rhythm and S1/S2
Neuro: Other (Unresponsive)
[2025-01-21] MEDS: MORPHINE 100 IV (23:15)
[2025-01-21 23:55] VITALS: BP 108/60
--- NOTE | 2025-01-22 00:14 | PTCARENOTE ---
Pt temperature 103. Rectal tylenol administered and ice pacts placed under pt arm and in groin
[2025-01-22 07:00] VITALS: BP 109/55
[2025-01-22] MEDS: DAKIN'S SOLUTION 0.125% 1/4 STRENGTH TOPICAL (10:25)
[2025-01-22] MEDS: DESENEX/MITRAZOL/ZEASORB TOPICAL (10:26)
--- NOTE | 2025-01-22 14:18 | W.PN.HOSP.TC ---
Today's Communication/Plan
-
continue comfort measure
Assessment / Plan
Assessment / Plan
Impression:
Severe sepsis.
Suspected urinary tract infection as a source.
Gram-positive bacteremia
Lactic acidosis
Hyponatremia
Elevated LFT, mixed pattern
Toxic metabolic encephalopathy
Conditions prior to admission.
ASCVD.
History of TIA.
Insulin requiring diabetes.
Adrenal insufficiency on prednisone maintenance
Dementia with behavioral features.
Recurrent UTIs requiring hospitalization
[facility] resident
Plan:
Transitioned to comfort care on 01/17
Initiate morphine drip with titration
Antibiotics
Secretion control
Discussed with patient's daughter at the bedside.
Discussed with nursing
01/22
Continue morphine drip, currently at rate of 4 mg/h
Patient remains unresponsive.
No objective sign of discomfort/pain
Anticipated Discharge: Within 24 hours
Subjective/Interval History
-
Date of Service: January 22, 2025
no complains overnight
denies of problems
Objective Data
-
Vital Signs:
Vital Signs
Temp Pulse Resp BP Pulse Ox
97.2 F 126 10 109/55 90
01/22/25 07:00 01/22/25 07:00 01/22/25 07:00 01/22/25 07:00 01/22/25 07:00
I&O
01/21/25 01/22/25 01/23/25
06:59 06:59 06:59
Intake Total 48 / 48
Output Total 600 / 600 475 / 475 300 / 300
Balance -600 / -600 -427 / -427 -300 / -300
Review of Systems
-
Unable to obtain full review of systems at this time due to: Acuity
Physical Exam
-
General: Negative Respiratory Distress
Respiratory: Rhonchi
Neuro: Negative Awake or Alert
[2025-01-22 19:11] VITALS: BP 112/79
[2025-01-22] MEDS: TYLENOL/FEVERALL 650 MG RECTAL (19:45)
[2025-01-22] MEDS: DESENEX/MITRAZOL/ZEASORB 1 APPLIC TOPICAL (19:46)
--- NOTE | 2025-01-23 00:29 | W.PN.DEATH ---
Pronouncement of
-
Called to see patient to pronounce.
No spontaneous heart tones or respirations noted.
Patient not responsive to verbal stimuli.
Patient is pronounced .
Time of : 22:00
Date of : 01/22/25
Cause of : sepsis, urinary tract infection
Family Notified: Yes (daughter will not be coming in)
--- NOTE | 2025-01-23 01:13 | PTCARENOTE ---
Addendum entered by Elin Garcia RN 01/23/25 02:09:
No personal belongings of patient at bedside.
Addendum entered by Elin Garcia RN 01/23/25 02:04:
[facility] [employer] notifed.
Original Note:
Patient found by patient critical care nurse specialist at 2200. PCT alerted this RN. Upon assessment, patient was unresponsive with no heart sounds or respirations. IZA Beckham notified. Patient was pronounced by IZA. Family notifed. [place]
back from patient's daughter at 0030 that she will not be coming in. Monsalve catheter and IVs removed. Post mortem care performed. [place] [facility] [place]
--- NOTE | 2025-01-23 15:37 | W.DCSUMMARY ---
Discharge Summary
Discharge Data
Date of Admission: 01/16/25
Date of Discharge: 01/22/25
-
Pending Results: No
Hospital Course
This is a summary on Ms. Donita Murray who on 01/22/2025 at 2200
List of hospital diagnosis:
Sepsis
Urinary tract infection from Escherichia coli
Methicillin-sensitive Staphylococcus aureus bacteremia
Lactic acidosis
Hyponatremia
Transaminitis
Toxic metabolic encephalopathy
Coronary disease
History of transient ischemic attack
Insulin-dependent diabetes mellitus
Adrenal insufficiency
Dementia with behavioral problems
Recurrent urinary tract infection
Hospital course:
Patient is a 79-year-old female with above-mentioned past medical history was brought from long-term after patient was noted to having worsening mentation. Patient was noted to be septic on evaluation in ER. Source was felt to be urinary in
nature with UA showing significant pyuria and bacteriuria. CT abdomen pelvis without contrast showing bilateral hydronephrosis. Patient was started on broad-spectrum antibiotic and infectious disease physicians were involved in care. Patient
blood culture also identified gram-positive bacteria later identified as methicillin sensitive Staphylococcus aureus. Patient was kept on IV fluid resuscitation. Despite this patient developed shock and worsening clinical status. Overall in light
of poor quality of life and underlying dementia goal of care discussion were held and patient family agreed for patient to be transition to comfort care. All life prolonging medications were discontinued and patient would started on morphine drip.
Patient on comfort care on 01/22/2025 at 2200.
Discharge Plan
-
Patient Disposition:
Date/Time
Date/Time: 01/22/25 22:00
Discharge Date and Time
Discharge Date/Time: 01/23/25 03:10
Print Language: AUSTRIAN
== END 2025-01-22 22:00 | disposition expired | DRG 871 ==
LOC: 3 WEST ACU 14:39
PROVIDERS: ADMITTING PHYSICIAN Internal Medicine; ATTENDING PHYSICIAN Hospitalist; EMERGENCY PHYSICIAN Emergency Medicine; FAMILY PHYSICIAN Student in an Organized Health Care Education/Training Program; OTHER PHYSICIAN Internal Medicine Infectious Disease
DX: A41.01 Sepsis due to Methicillin susceptible Staphylococcus aureus (principal); G92.8 Other toxic encephalopathy; E87.20 Acidosis, unspecified; E87.1 Hypo-osmolality and hyponatremia; E27.40 Unspecified adrenocortical insufficiency; F03.93 Unspecified dementia, unspecified severity, with mood disturbance; F03.94 Unspecified dementia, unspecified severity, with anxiety; F03.918 Unspecified dementia, unspecified severity, with other behavioral disturbance; N13.6 Pyonephrosis; B96.20 Unspecified Escherichia coli [E. coli] as the cause of diseases classified elsewhere; Z86.73 Personal history of transient ischemic attack (TIA), and cerebral infarction without residual deficits; E11.9 Type 2 diabetes mellitus without complications; Z87.440 Personal history of urinary (tract) infections; Z51.5 Encounter for palliative care; E78.00 Pure hypercholesterolemia, unspecified; I10 Essential (primary) hypertension; Z79.4 Long term (current) use of insulin; Z79.02 Long term (current) use of antithrombotics/antiplatelets; Z11.52 Encounter for screening for COVID-19; B95.61 Methicillin susceptible Staphylococcus aureus infection as the cause of diseases classified elsewhere; F32.A Depression, unspecified; Z66 Do not resuscitate; R65.20 Severe sepsis without septic shock; L89.150 Pressure ulcer of sacral region, unstageable
CPT/HCPCS: 51701; 71045; 74176; 76700; 80048; 80053; 81003; 81015; 82962; 83036; 83605; 85025; 87040; 87070; 87086; 87147; 87149; 87186; 87205; 87502; 87811; 93005; 96361; 96374; 96375; 99291; J2185; J7030